=== PATIENT | female | born 1975 | race Caucasian/White ===

== ENCOUNTER 2017-07-13 15:36 | Outpatient (CLI) | payer OTHER | END 2017-07-13 15:37 | disposition home or self-care (01) | LOC: DI.N 15:36 | PROVIDERS: ATTEND Family Medicine | DX: Z53.9 Procedure and treatment not carried out, unspecified reason (principal) ==

== ENCOUNTER 2017-10-15 10:10 | Outpatient (CLI) | payer OTHER ==
--- NOTE | 2017-10-30 17:26 | Mammography Report ---
Reason: SCREEN Procedure Date: 10/15/2017 Accession Number: [id number] / [id number] Procedure: FABIO - Screening 3D [place] CPT Code: 01247 FULL RESULT: EXAM: Screening 3D [place] DATE: 10/15/2017 3:04 PM CLINICAL HISTORY: 42-year-old female with history of late childbearing presents for baseline screening mammography. TECHNIQUE: Bilateral CC and MLO views were obtained in 2-D and 3-D technique. COMPARISON: None FINDINGS: The breasts demonstrate heterogeneously dense fibroglandular parenchyma bilaterally. Typically benign coarse calcifications are identified in the right breast. No suspicious masses, clustered microcalcifications, or regions of architectural distortion are identified. IMPRESSION: Benign findings RECOMMENDATION: Routine annual screening unless otherwise clinically indicated. BIRADS CATEGORY 2: Benign findings STANDARD QUALIFYING STATEMENTS: 1. This examination was not reviewed with the aid of Computer-Aided Detection (CAD). 2. A negative or benign imaging report should not delay biopsy if clinically suspicious findings are present. Consider surgical consultation if warrented. More than 5% of cancers are not identified by imaging. 3. Dense breasts may obscure an underlying neoplasm. 4. This examination was reviewed with the aid of 3D imaging (tomography).
== END 2017-10-15 10:11 | disposition home or self-care (01) ==
LOC: DI 10:10
PROVIDERS: ATTEND Nurse Practitioner Adult Health
DX: Z12.31 Encounter for screening mammogram for malignant neoplasm of breast (principal)
CPT/HCPCS: 77063; 77067

== ENCOUNTER 2017-12-07 09:36 | Outpatient (CLI) | payer OTHER | END 2017-12-07 09:37 | disposition home or self-care (01) | LOC: SC 09:36 | PROVIDERS: ATTEND Internal Medicine Pulmonary Disease | DX: G47.10 Hypersomnia, unspecified (principal); R41.89 Other symptoms and signs involving cognitive functions and awareness; R06.83 Snoring; G47.8 Other sleep disorders | CPT/HCPCS: 99203; 99212 ==

== ENCOUNTER 2018-01-21 06:57 | Outpatient (CLI) | payer OTHER | END 2018-01-21 06:58 | disposition home or self-care (01) | LOC: SC 06:57 | PROVIDERS: ATTEND Internal Medicine Pulmonary Disease | DX: R06.83 Snoring (principal); G47.10 Hypersomnia, unspecified | CPT/HCPCS: 95810 ==

== ENCOUNTER 2018-01-21 11:40 | Outpatient (CLI) | payer OTHER | END 2018-01-21 11:41 | disposition EMS.NT | LOC: EMS 11:40 | PROVIDERS: ATTEND Surgery | DX: R51 Headache (principal); R11.10 Vomiting, unspecified ==

== ENCOUNTER 2018-03-02 09:18 | Outpatient (CLI) | payer OTHER | END 2018-03-02 09:19 | disposition home or self-care (01) | LOC: SC 09:18 | PROVIDERS: ATTEND Nurse Practitioner Family | DX: R06.83 Snoring (principal); G47.10 Hypersomnia, unspecified | CPT/HCPCS: 99212; 99214 ==

== ENCOUNTER 2018-05-07 11:06 | Outpatient (CLI) | payer OTHER ==
--- NOTE | 2018-05-13 17:03 | Ultrasound Report ---
Reason: AMENORRHEA,SECONDARY Procedure Date: 05/07/2018 Accession Number: [id number] / [id number] Procedure: US - Pelvic w/Transvaginal CPT Code: FULL RESULT: EXAM: PELVIC ULTRASOUND EXAM DATE: 05/07/2018 12:15 PM. CLINICAL HISTORY: Amenorrhea, secondary. COMPARISON: None. TECHNIQUE: Realtime transabdominal pelvic scan performed to identify the uterus and adnexa and as an overview of other pelvic structures, followed by transvaginal scan to provide greater detail of the uterus and adnexa, with static image documentation. FINDINGS: Uterus: 9 x 4.5 x 5.4 cm, volume 113 cc. Anteverted position. Normal overall size and echotexture. Masses: None. Endometrium: 6 mm. Normal. Cervix: Unremarkable. Right Ovary: 2.3 x 1.4 x 1.2 cm, volume 2 cc. Normal echotexture and blood flow. Left Ovary: 2.2 x 1.5 x 1.4 cm, volume 2.5 cc. Normal echotexture and blood flow. Free Fluid: None. Other: None. IMPRESSION: Normal pelvic ultrasound. RADIA
== END 2018-05-07 11:07 | disposition home or self-care (01) ==
LOC: DI 11:06
PROVIDERS: ATTEND Nurse Practitioner Adult Health
DX: N95.0 Postmenopausal bleeding (principal)
CPT/HCPCS: 76830; 76856

== ENCOUNTER 2018-05-07 11:10 | Outpatient (CLI) | payer OTHER ==
--- NOTE | 2018-05-07 14:45 | Mammography Report ---
Reason: MASTODYNIA,BILATERAL,GALACTORRHEA Procedure Date: 05/07/2018 Accession Number: [id number] / [id number] Procedure: FABIO - Diagnostic Dig Bilat CPT Code: FULL RESULT: EXAM: Diagnostic Dig Bilat DATE: 05/07/2018 12:45 PM CLINICAL HISTORY: Diagnostic exam. Bilateral Mastodynia and galactorrhea. History of late childbearing. TECHNIQUE: Bilateral CC and MLO images as well as bilateral ML images obtained COMPARISON: 10/15/2017. FINDINGS: The breasts demonstrate heterogeneously dense fibroglandular parenchyma bilaterally. There are coarse typically benign calcifications. No suspicious calcifications, mass or architectural distortion is identified. IMPRESSION: Benign findings RECOMMENDATION: Recommend routine annual Screening mammography unless otherwise clinically indicated. BIRADS CATEGORY 2: Benign findings STANDARD QUALIFYING STATEMENTS: 1. This examination was not reviewed with the aid of Computer-Aided Detection (CAD). 2. A negative or benign imaging report should not delay biopsy if clinically suspicious findings are present. Consider surgical consultation if warrented. More than 5% of cancers are not identified by imaging. 3. Dense breasts may obscure an underlying neoplasm. 4. This examination was reviewed with the aid of 3D imaging (tomography).
== END 2018-05-07 11:11 | disposition home or self-care (01) ==
LOC: DI 11:10
PROVIDERS: ATTEND Nurse Practitioner Adult Health
DX: N64.4 Mastodynia (principal); N64.52 Nipple discharge
CPT/HCPCS: 77066

== ENCOUNTER 2018-05-28 08:54 | Outpatient (CLI) | payer OTHER | END 2018-05-28 08:55 | disposition home or self-care (01) | LOC: LAB 08:54 | PROVIDERS: ATTEND Registered Nurse | DX: R63.5 Abnormal weight gain (principal) | CPT/HCPCS: 36415; 82951 ==

== ENCOUNTER 2018-06-21 19:30 | Outpatient (CLI) | payer OTHER | END 2018-06-21 23:59 | disposition home or self-care (01) | LOC: SC 19:30 | PROVIDERS: ATTEND Internal Medicine Pulmonary Disease | DX: G47.10 Hypersomnia, unspecified (principal) | CPT/HCPCS: 95806 ==

== ENCOUNTER 2018-08-31 12:53 | Outpatient (CLI) | payer OTHER | END 2018-08-31 12:54 | disposition home or self-care (01) | LOC: SC 12:53 | PROVIDERS: ATTEND Nurse Practitioner Family | DX: G47.10 Hypersomnia, unspecified (principal); R06.83 Snoring; R03.0 Elevated blood-pressure reading, without diagnosis of hypertension | CPT/HCPCS: 99212; 99214 ==

== ENCOUNTER 2018-11-09 18:19 | Emergency (ER) | payer OTHER ==
--- NOTE | 2018-11-09 19:35 | ED Physician Documentation ---
PD HPI BACK INJURY - Stated complaint Stated Complaint: BACK PX - History obtained from History obtained from: Patient - History of Present Illness Location: Right, Lower Type of injury: Twist (lifting bag heavier than expected - was picking it up to move it to the left. [place] onset of pain in right lower lumbar area. No weakness of legs, no numbness.). No: Fall Where injury occurred: Work Timing - onset: Today Timing - duration: Hours Timing - details: Abrupt onset, Still present Quality: Pain, Spasm Worsened by: Moving, Other (bending and twisting) Associated symptoms: No: Fever, Weakness, Numbness, Incontinent of urine Contributing factors: Work related. 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 - Present Medications Home Medications: Ambulatory Orders Medication Instructions Recorded Confirmed Hydrocodone/Acetaminophen [[place] 1 each PO Q6H PRN #15 tablet 11/09/18 5-325 Tablet] Naproxen 500 mg PO BID #20 tablet 11/09/18 Tizanidine HCl 4 mg PO TID PRN #25 capsule 11/09/18 dexAMETHasone [Decadron] 4 mg PO DAILY #5 tablet 11/09/18 - Allergies Allergies/Adverse Reactions: Allergies Allergy/AdvReac Type Severity Reaction Status Date / Time No Known Drug Allergies Allergy Verified 11/09/18 18:26 - Social History Does the pt smoke?: Yes Smoking Status: Current every day smoker Does the pt drink ETOH?: No Does the pt have substance abuse?: No - Immunizations Immunizations are current?: Yes - POLST Patient has POLST: No PD ED PE NORMAL - Vitals Vital signs reviewed: Yes - General General: Alert and oriented X 3, Well developed/nourished - Abdomen Abdomen: Soft, Non tender - Female Female : Deferred - Rectal Rectal: Deferred - Derm Derm: Normal color, Warm and dry - Extremities Extremities: Normal ROM s pain, No edema, No calf tenderness / cord - Neuro Neuro: No motor deficit, No sensory deficit Results - Vitals Vitals: Vital Signs - 24 hr 11/09/18 11/09/18 18:26 20:45 Temperature 36.5 C Heart Rate 111 H 107 H Respiratory 16 18 Rate Blood Pressure 162/97 H 135/110 H O2 Saturation 98 97 Oxygen O2 Source Room air PD MEDICAL DECISION MAKING - ED course Complexity details: considered differential (There are no red flags to suggest need for urgent imaging or blood tests. This sounds like acute myofascial strain without any sciatic type symptoms. We will treated with anti- inflammatories and muscle relaxants and pain medicine. Off work for 2 days and limited to the for another 5 days.), d/w patient Departure - Departure Disposition: Home, Self Care Clinical Impression: Acute lumbar myofascial strain Qualifiers: Encounter type: initial encounter Qualified Code(s): S39.012A - Strain of muscle, fascia and tendon of lower back, initial encounter Condition: Stable Record reviewed to determine appropriate education?: Yes Instructions: ED Sprain Strain Lumbar Follow-Up: Diane Akbar MD [Primary Care Provider] - Prescriptions: dexAMETHasone [Decadron] 4 mg PO DAILY #5 tablet Hydrocodone/Acetaminophen [[place]el[place] 5-325 Tablet] 1 each PO Q6H PRN #15 tablet PRN Reason: Pain Naproxen 500 mg PO BID #20 tablet Tizanidine HCl 4 mg PO TID PRN #25 capsule PRN Reason: Spasms Comments: Heat and gentle stretching for the low back to reduce stiffness and spasms. Anti-inflammatories naproxen twice daily for 7 to 10 days. Tizanidine muscle relaxant if needed for stiffness and spasm. Add Tylenol 4 times a day for pain as needed. Use hydrocodone if needed for worse pain. Off work for 2 days and then another 5 days a limited lifting to allow better healing. Follow-up with your primary care in about a week, call for an appointment for follow-up to ensure you are well enough to resume full activity. Forms: Activity restrictions Discharge Date/Time: 11/09/18 21:06
[2018-11-09] MEDS ORDERED: CHERRY SYRUP 10 ML UDC PO ONE (20:07)
[2018-11-09] MEDS ORDERED: HYDROcod/ACET 5/325 Prepack 4 PO STA (20:07)
[2018-11-09] MEDS ORDERED: METHOCARBAMOL 500 MG TABLET PO STA (20:07)
[2018-11-09] MEDS ORDERED: KETOROLAC 30 MG/ML VIAL IM STA (20:07)
[2018-11-09] MEDS ORDERED: DEXAMETHASONE 10 MG/ML VIAL PO STA (20:07)
[2018-11-09] MEDS ORDERED: ACETAMINOPHEN 325 MG TABLET PO STA (20:07)
[2018-11-09 20:45] VITALS: BP 135/110
== END 2018-11-09 21:06 | disposition home or self-care (01) ==
LOC: ED 18:19
DX: S39.012A Strain of muscle, fascia and tendon of lower back, initial encounter (principal); X50.0XXA Overexertion from strenuous movement or load, initial encounter; Y93.89 Activity, other specified; Y99.0 Civilian activity done for income or pay; I10 Essential (primary) hypertension; F17.200 Nicotine dependence, unspecified, uncomplicated
CPT/HCPCS: 1040M; 96372; 99283; 99284; A9270

== ENCOUNTER 2019-06-20 16:52 | Outpatient (CLI) | payer OTHER ==
--- NOTE | 2019-06-20 16:42 | SLEEP CARE CONSULTATION ---
Information from patient questionnaire entered by Heena Han. I have reviewed and concur with the information entered by Heena Han. This document represents the service I personally performed and the decisions made by me, Kaycee Kevin, RN, MSN, RACING DRIVER. History of Present Illness Service Date and Time: 06/20/2019 1600 Reason for follow up: other (10 MONTH WITH POSITIONAL THERAPY AND JOURNAL) HPI additional information: I called patient for her televisit to address her sleep concerns. I review my past visit note prior to the call. She had a HST which showed no significant sleep disordered breathing with an AHI of 2.9. However, due to her nasal congestion and coughing at night fragmenting sleep, an ENT consult was recommended. A sleep diary was advised. She was also advised to lose weight to reduce health and apnea risk. Follow up was recommended in 2 months. She reports that she continues to have difficulty sleeping through the night. She was able to go to ENT and tubes placed in ears but out now and was offered to have replaced. She recently had an ear infection and took an antibiotic with resolution. She was offered to get allergy shots but unable to complete due to difficulty completing weekly treament due to work schedule. She currently is taking Allergra for allergy symptoms and alternates with Claritin with benefit noted. She does not think the symptoms are interfering with sleep. Review of current sleep history bedtime 10-11pm It takes about an hour to fall asleep. an hour before sleep her bedtime ritual is a shower and resting in bed. If she is unable to sleep right away she will read relaxing material. She wakes about 2-3 am and sometimes can fall asleep right away and other times it takes an hour. She looks at clock every time she awakens. Wake up time is 5am - 5:15am. She uses an alarm and will use snooze button only a couple times. She is not napping. Subjective Initial [place] Sleepiness Scale score: 7 Physical Exam Height: 5 ft 6 in Weight: 197 lb Body Mass Index: 31.8 BMI Classification: Obese Impression and Plan Insomnia, with difficulty going to sleep and maintaining sleep. It seems that patient is going to bed too early as it takes 1 hour generally to fall asleep. Thus she is advised to read prior to going to bed instead of in bed to associate the bed with sleep not trying to go to sleep. In addition, she is advised to cover clock so that she does not look at it in the middle of night as it can be alerting with rationale explained. Instead when she awakens she is to address needs such as use bathroom or position for comfort and try to go back to sleep. If she is unable within a short while then she is to leave bedroom and engage in quiet activity such as reading with light behind her so not to affect her melatonin level. Staying in bed tossing and turning will only heighten frustration and alertness. This is to be repeated as often as necessary to associate the bed with sleep and not frustration to get to sleep. A sleep diary will be completed for the next 2 weeks to assist implementation of recommendations and for further evaluation of sleep concerns. 1. Implement methods to reduce insomnia 2. complete 2 weeks of sleep diaries 3. Follow up in 1-2 months. Visit Type: Telehealth Phone (to reduce risk of Covid 19 risk.) Patient Location: Home Location of Provider: Home Patient agrees and consents to this telehealth visit type: Yes Patient agrees to have their insurance billed: Yes Time Spent with Patient (minutes): 10 Provider Statement: I spent 100% of the Telehealth Phone Call with the patient with greater than 50% spent counseling the patient and coordination of care.
== END 2019-06-20 16:53 | disposition home or self-care (01) ==
LOC: SC 16:52
PROVIDERS: ATTEND Nurse Practitioner Family
DX: G47.00 Insomnia, unspecified (principal); E66.9 Obesity, unspecified; Z68.31 Body mass index [BMI] 31.0-31.9, adult

== ENCOUNTER 2020-08-12 13:14 | Outpatient (CLI) | payer OTHER ==
--- NOTE | 2020-08-12 14:18 | XRAY Report ---
PROCEDURE: Chest 2 View X-Ray INDICATIONS: CONGESTION TECHNIQUE: 2 view(s) of the chest. COMPARISON: None. FINDINGS: Surgical changes and devices: None. Lungs and pleura: No pleural effusions or pneumothorax. Lungs are clear. Mediastinum: Mediastinal contours are normal. Heart size is normal. Bones and chest wall: No suspicious bony abnormalities. Soft tissues appear unremarkable. IMPRESSION: Normal. No infiltrates. If there is strong clinical concern for a developing or new pulmonary process, please consider a shor t-term follow-up 2 view chest series, performed in deep inspiration. Reviewed by: Mendel Schmidt MD on 08/12/2020 1:16 PM SUSAN Approved by: Mendel Schmidt MD on 08/12/2020 1:16 PM SUSAN Station ID: [id number]
== END 2020-08-12 23:59 | disposition home or self-care (01) ==
LOC: DI.N 13:14
PROVIDERS: ATTEND Nurse Practitioner
DX: R06.2 Wheezing (principal); Z20.822 Contact with and (suspected) exposure to COVID-19

== ENCOUNTER 2021-02-12 16:25 | Emergency (ER) | payer OTHER ==
[2021-02-12] MEDS ORDERED: KETOROLAC 60 MG/2 ML VIAL IM STA (17:28)
--- NOTE | 2021-02-12 17:32 | ED Physician Documentation ---
History of Present Illness - Stated complaint Stated Complaint: LT SHOULDER PX - Chief complaint Chief Complaint: Ext Problem - Additonal information Additional information: 46-year-old female presents emergency department for evaluation of 3 weeks left shoulder pain. 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 She often has pain when she rises from a sitting position. No falls or trauma. No fevers. She is right arm dominant. No history of previous injury to the shoulder or pain. 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 : None HEENT: None Psych: None Musculoskeletal: None Derm: None - Past Surgical History 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 - Present Medications Home Medications: Ambulatory Orders Medication Instructions Recorded Confirmed Amlodipine Besylate [Norvasc] 10 mg PO DAILY 02/12/21 02/12/21 Atorvastatin Calcium 40 mg PO DAILY PM 02/12/21 02/12/21 - Allergies Allergies/Adverse Reactions: Allergies Allergy/AdvReac Type Severity Reaction Status Date / Time No Known Drug Allergies Allergy Verified 02/12/21 16:49 - Social History Does the pt smoke?: Yes Smoking Status: Current every day smoker Does the pt drink ETOH?: No Does the pt have substance abuse?: No - Immunizations Immunizations are current?: Yes - POLST Patient has POLST: No PD ED PE EXPANDED - General General: Alert, No acute distress - Cardiac Cardiac: Regular Rate, Radial strong equal, Pedal strong equal. No: Murmur Present - Respiratory Respiratory: Clear to ausultation nicole. No: Distress, Labored - Extremities Extremities: Left shoulder (no swelling, erythema. no tenderness tricepts tendon. Full active ROM. Negative impingment tesing. 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 water resources engineer strength) Results - Vitals Vitals: Vital Signs - 24 hr 02/12/21 02/12/21 16:44 17:19 Temperature 36.2 C L 36.4 C L Heart Rate 99 99 Respiratory 18 16 Rate Blood Pressure 174/114 H O2 Saturation 98 96 Oxygen O2 Source Room air - Rads (name of study) left shoulder Radiology: Final report received (No acute osseous process) PD MEDICAL DECISION MAKING - ED course Complexity details: reviewed old records, reviewed results, re-evaluated patient, d/w patient ED course: Well-appearing 46-year-old female presents emergency department for evaluation of 3 weeks left shoulder pain. 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 No falls or trauma. Shoulder is relatively brief during with nearly full range of motion in all planes. No swelling or erythema. Low suspicion for for septic infection. pt is advised to f/u with pcp, may benefit from referral to PT. cnsider MRI if not improved with conservative therapy Departure - Departure Disposition: 01 Home, Self Care Clinical Impression: Left anterior shoulder pain Condition: Stable Record reviewed to determine appropriate education?: Yes Instructions: ED Strain Muscle Ext Comments: Zoila you are seen in the emergency department today for about 3 weeks of pain in your left shoulder. 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 I suspect that he may have an overuse injury. I do recommend that you take Tylenol or ibuprofen 2-3 times a day for discomfort. You will benefit from reducing the repetitive movements but you can otherwise use your arm normally. I do recommend close follow-up with your primary care doctor. You might benefit from referral to a physical therapist. If conservative treatment or physical therapy does not improve your symptoms further evaluation of the shoulder can be completed with an MRI. If any point you develop shoulder swelling, redness, have fevers sudden severe or different pain then please return immediately to the ER for second jessica luation.
--- NOTE | 2021-02-12 17:43 | XRAY Report ---
PROCEDURE: Shoulder 3 View LT INDICATIONS: 3 weeks left shoulder pain TECHNIQUE: 3 views of the shoulder were acquired. COMPARISON: None. FINDINGS: Bones: No fractures or dislocations. No suspicious bony lesions. Visualized ribs appear intact. Soft tissues: No suspicious soft tissue calcifications. IMPRESSION: No acute fracture. No osseous lesion. If symptoms and/or clinical suspicion for patholog y continue, further assessment with repeat plain films, or advanced imaging (e.g., CT, MRI, or bone s can) is recommended for further assessment. Reviewed by: Gloria Morgan MD on 02/12/2021 5:42 PM PST Approved by: Gloria Morgan MD on 02/12/2021 5:42 PM PST Station ID: [id number]
[2021-02-12 18:34] VITALS: BP 178/102
== END 2021-02-12 18:33 | disposition home or self-care (01) ==
LOC: ED 16:25
DX: M25.512 Pain in left shoulder (principal); F17.200 Nicotine dependence, unspecified, uncomplicated
CPT/HCPCS: 96372; 99283

== ENCOUNTER 2021-06-17 10:40 | Emergency (ER) | payer OTHER ==
[2021-06-17 10:47] VITALS: BP 193/112
--- NOTE | 2021-06-17 11:17 | XRAY Report ---
PROCEDURE: Knee 4 View LT INDICATIONS: Trauma TECHNIQUE: 4 views of the left knee(s) were acquired. COMPARISON: None. FINDINGS: Bones: No fractures or dislocations. Moderate tricompartmental osteoarthritis is seen more prominent in medial femoral tibial compartment. No suspicious bony lesions. Soft tissues: Small suprapatellar joint effusion is noted. Well-corticated calcification is seen proj ecting over medial aspect of suprapatellar joint space, a small loose body cannot be excluded. IMPRESSION: No left knee fracture or dislocation. Moderate joint effusion. Moderate tricompartmental osteoarthritis. Possible loose body versus soft tissue calcification from remote injury as above. Reviewed by: Miguelito Johnson MD on 06/17/2021 11:16 AM PDT Approved by: Miguelito Johnson MD on 06/17/2021 11:16 AM PDT Station ID: [id number]
--- NOTE | 2021-06-17 11:18 | ED Physician Documentation ---
PD HPI LOWER EXT INJURY - Stated complaint Stated Complaint: LT KNEE INJ - Chief complaint Chief Complaint: Ext Problem - History obtained from History obtained from: Patient - History of Present Illness PD HPI LOW EXT INJURY LOCATION: Left, Knee Where injury occurred: Home Timing - details: Gradual onset Pain level max: 7 Pain level now: 5 Improved by: Rest Worsened by: Moving, Palpating Associated symptoms: Swelling. No: Weakness, Numbness, Tingling Recently seen: Not recently seen - Additional information Additional information: Patient is a 46-year-old female who presents to the emergency department stating that she injured her left knee about 4 days ago playing basketball with her son. She does not recall any specific injury, but states it has been hurting since that time. Worse with walking, better with rest. Has not had any prior knee surgeries. 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 - Present Medications Home Medications: Ambulatory Orders Medication Instructions Recorded Confirmed Amlodipine Besylate [Norvasc] 10 mg PO DAILY 02/12/21 02/12/21 Atorvastatin Calcium 40 mg PO DAILY PM 02/12/21 02/12/21 - Allergies Allergies/Adverse Reactions: Allergies Allergy/AdvReac Type Severity Reaction Status Date / Time No Known Drug Allergies Allergy Verified 06/17/21 10:47 - Social History Does the pt smoke?: Yes Smoking Status: Current every day smoker Does the pt drink ETOH?: No Does the pt have substance abuse?: No - Immunizations Immunizations are current?: Yes - POLST Patient has POLST: No PD ED PE NORMAL - Vitals Vital signs reviewed: Yes - General General: Alert and oriented X 3, No acute distress - HEENT HEENT: Moist mucous membranes - Cardiac Cardiac: RRR - Respiratory Respiratory: No respiratory distress, Clear bilaterally - Derm Derm: Warm and dry - Neuro Neuro: Alert and oriented X 3, Other (Tender to palpation across the joint line of the left knee. Mild swelling. Mild effusion. Neurovascularly intact. ACL, MCL, PCL, LCL are intact. Does have pain with meniscus testing.) Results - Vitals Vitals: Vital Signs - 24 hr 06/17/21 10:45 Temperature 36.4 C L Heart Rate 101 H Respiratory 16 Rate Blood Pressure 193/112 H O2 Saturation 96 Oxygen O2 Source Room air - Rads (name of study) Left knee x-ray Radiology: Final report received, EMP read contemporaneously, See rad report PD MEDICAL DECISION MAKING - ED course Complexity details: reviewed results, re-evaluated patient, considered differential, d/w patient ED course: Patient with a mild left knee effusion. Placed an articulating knee brace, 10 to 30 degrees. Given crutches as well. Patient declines any pain medication here or for home. After the swelling is decreased, recommend she follow-up with orthopedics to evaluate her meniscus. Patient counseled regarding signs and symptoms for which I believe and urgent re-evaluation would be necessary. Patient with good understanding of and agreement to plan and is comfortable going home at this time This document was made in part using voice recognition software. While efforts are made to proofread this document, sound alike and grammatical errors may occur. The possible loose foreign body on x-ray is likely calcification from remote injury given correlation with her physical exam. IMPRESSION: No left knee fracture or dislocation. Moderate joint effusion. Moderate tricompartmental osteoarthritis. Possible loose body versus soft tissue calcification from remote injury as above. Departure - Departure Disposition: 01 Home, Self Care Clinical Impression: Knee effusion Qualifiers: Laterality: left Qualified Code(s): M25.462 - Effusion, left knee Injury of meniscus of knee Qualifiers: Encounter type: initial encounter Laterality: left Qualified Code(s): S83.8X2A - Sprain of other specified parts of left knee, initial encounter Condition: Good Instructions: ED Effusion Knee Follow-Up: your,doctor in 1 week [Other] Orthopedic Care [Provider Group] - Within 1 week Comments: Please follow-up with your doctor for further care. Return if you worsen. You may bear weight as tolerated, but will likely need to stay off the leg as much as possible for the next week. The brace should help as well. Ice and elevation will help as well. IMPRESSION: No left knee fracture or dislocation. Moderate joint effusion. Moderate tricompartmental osteoarthritis. Possible loose body versus soft tissue calcification from remote injury as above. Discharge Date/Time: 06/17/21 11:55
== END 2021-06-17 11:55 | disposition home or self-care (01) ==
LOC: ED 10:40
DX: S83.8X2A Sprain of other specified parts of left knee, initial encounter (principal); X58.XXXA Exposure to other specified factors, initial encounter; Y93.67 Activity, basketball; F17.200 Nicotine dependence, unspecified, uncomplicated; M25.462 Effusion, left knee
CPT/HCPCS: 99283; 99284

== ENCOUNTER 2022-01-01 14:10 | Emergency (ER) | payer OTHER ==
[2022-01-01 14:42] LABS: BASOPHILS # (AUTO) 0.1 10^3/uL (0.0-0.1); BASOPHILS % (AUTO) 0.3 %; EOSINOPHILS # (AUTO) 0.2 10^3/uL (0.0-0.7); EOSINOPHILS % (AUTO) 1.1 %; HCT - HEMATOCRIT 43.6 % (37.0-47.0); HGB - HEMOGLOBIN 14.9 g/dL (12.0-16.0); LYMPHOCYTES # (AUTO) 3.2 10^3/uL (1.5-3.5); LYMPHOCYTES % (AUTO) 21.1 %; MEAN CORPUSCULAR HEMOGLOBIN 30.7 pg (27.0-31.0); MEAN CORPUSCULAR HGB CONC 34.2 g/dL (32.0-36.0); MEAN CORPUSCULAR VOLUME 89.7 fL (81.0-99.0); MEAN PLATELET VOLUME 9.4 fL (7.9-10.8); MONOCYTES % (AUTO) 6.3 %; NEUTROPHILS # (AUTO) 10.8 10^3/uL (1.5-6.6); NEUTROPHILS % (AUTO) 70.9 %; PLT - PLATELET COUNT 347 10^3/uL (130-450); RED BLOOD COUNT 4.86 10^6/uL (4.20-5.40); RED CELL DISTRIBUTION WIDTH 12.4 % (12.0-15.0); WHITE BLOOD COUNT 15.3 x10^3/uL (4.8-10.8)
[2022-01-01 14:57] LABS: ALBUMIN 4.4 g/dL (3.2-5.5); ALBUMIN/GLOBULIN RATIO 1.2 (1.0-2.2); BILIRUBIN,TOTAL 0.5 mg/dL (0.2-1.0); CALCIUM 9.4 mg/dL (8.5-10.3); CREATININE 0.7 mg/dL (0.4-1.0); POTASSIUM 3.5 mmol/L (3.5-5.0)
[2022-01-01] MEDS ORDERED: MAG HYDROX/AL HYDROX/SIMETH 30 ML UDC PO STA (17:03)
[2022-01-01] MEDS ORDERED: LIDOCAINE VISCOUS 2% 15 ML UDC MM STA (17:03)
--- NOTE | 2022-01-01 17:04 | ED Physician Documentation ---
PD HPI ABD PAIN - Stated complaint Stated Complaint: BACK PX,ABD PX,N/V - Chief complaint Chief Complaint: Abd Pain - History obtained from History obtained from: Patient - Additional information Additional information: 46-year-old woman has had right upper quadrant pain radiating to the mid back for almost 48 hours now. Its associate with nausea and poor appetite. She has been a bit constipated with it. No urinary complaints. She is never had this before. She is had a , no other abdominal surgeries. She notes that she was started on amoxicillin late last week for sinus infection and double ear infection. 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: section - Present Medications Home Medications: Ambulatory Orders Medication Instructions Recorded Confirmed Amlodipine Besylate [Norvasc] 10 mg PO DAILY 02/12/21 02/12/21 Atorvastatin Calcium 40 mg PO DAILY PM 02/12/21 02/12/21 - Allergies Allergies/Adverse Reactions: Allergies Allergy/AdvReac Type Severity Reaction Status Date / Time No Known Drug Allergies Allergy Verified 06/17/21 10:47 - Social History Does the pt smoke?: Yes Smoking Status: Current every day smoker Does the pt drink ETOH?: No Does the pt have substance abuse?: No - Immunizations Immunizations are current?: Yes - POLST Patient has POLST: No PD ED PE NORMAL - Vitals Vital signs reviewed: Yes - General General: Alert and oriented X 3, No acute distress - Neck Neck: Supple, no meningeal sign, No bony TTP - Cardiac Cardiac: RRR, No murmur - Respiratory Respiratory: No respiratory distress, Clear bilaterally - Abdomen Abdomen: Normal bowel sounds, Soft, Other (Mild tenderness in the right upper quadrant with negative Douglas sign, no other abdominal tenderness or surgical signs.) - Back Back: No CVA TTP, No spinal TTP - Derm Derm: Normal color, Warm and dry - Extremities Extremities: No edema, No calf tenderness / cord - Neuro Neuro: Alert and oriented X 3, Normal speech Results - Vitals Vitals: Vital Signs - 24 hr 01/01/22 01/01/22 01/01/22 14:21 14:24 16:24 Temperature 36.9 C 36.9 C Heart Rate 100 100 90 Respiratory 16 16 16 Rate Blood Pressure 177/90 H 177/90 H 179/95 H O2 Saturation 98 98 99 01/01/22 18:00 Temperature Heart Rate 90 Respiratory 16 Rate Blood Pressure 150/90 H O2 Saturation 99 Oxygen O2 Source Room air - Labs Labs: Laboratory Tests 01/01/22 01/01/22 01/01/22 14:36 14:36 18:38 WBC 15.3 H RBC 4.86 Hgb 14.9 Hct 43.6 MCV 89.7 MCH 30.7 MCHC 34.2 RDW 12.4 Plt Count 347 MPV 9.4 Neut # (Auto) 10.8 H Lymph # (Auto) 3.2 Tillman # (Auto) 1.0 Eos # (Auto) 0.2 Baso # (Auto) 0.1 Absolute Nucleated RBC 0.00 Nucleated RBC % 0.0 Sodium 138 Potassium 3.5 Chloride 98 L Carbon Dioxide 28 Anion Gap 12.0 BUN 14 Creatinine 0.7 Estimated GFR (MDRD) 90 Glucose 97 Calcium 9.4 Total Bilirubin 0.5 AST 26 ALT 34 Alkaline Phosphatase 68 Total Protein 8.0 Albumin 4.4 Globulin 3.6 Albumin/Globulin Ratio 1.2 Lipase 45 Urine Color YELLOW Urine Clarity CLEAR Urine pH 7.0 Ur Specific [place] 1.010 Urine Protein NEGATIVE Urine Glucose (UA) NEGATIVE Urine Ketones NEGATIVE Urine Occult Blood SMALL H Urine Nitrite NEGATIVE Urine Bilirubin NEGATIVE Urine Urobilinogen 0.2 (NORMAL) Ur Leukocyte Esterase NEGATIVE Urine RBC 0-5 Urine WBC 0-3 Ur Squamous Epith Cells MANY Squamous H Urine Bacteria Rare Ur Microscopic Review INDICATED Urine Culture Comments NOT INDICATED Urine HCG, Qual NEGATIVE PD MEDICAL DECISION MAKING - ED course ED course: 46-year-old woman with right upper quadrant and epigastric pain radiating to the back for the last couple of days, worse with eating and associated with nausea. She is not an extremis, and a relatively benign examination. She did get some relief with a GI cocktail. No leukocytosis of moderate extent but no other lab abnormalities. Ultrasound showing fatty liver per preliminary report but no evidence of gallbladder pathology or stones. She was recently started on amoxicillin and may have some gastritis related to same. She declined pain medication while here. She was given close return precautions but will trial a PPI. Departure - Departure Disposition: 01 Home, Self Care Clinical Impression: Abdominal pain Qualifiers: Abdominal location: right upper quadrant Qualified Code(s): R10.11 - Right upper quadrant pain Condition: Good Record reviewed to determine appropriate education?: Yes Instructions: ED Abdominal Pain Female Non-Specific Abdominal Pain Comments: Suspect you have gastritis from the antibiotics, I would like you to take a proton pump inhibitor such as omeprazole or lansoprazole per package instructions. These are available [id number]. Return for new or worsening symptoms or if not better in the next 48 hours or so. Follow-up with your doctor, next available appointment regardless, consideration for referral for upper endoscopy if symptoms are persistent. If pain moves into the lower abdomen or elsewhere please return immediately for reevaluation. Discharge Date/Time: 01/01/22 18:57
[2022-01-01 18:03] VITALS: BP 150/90
[2022-01-01 18:46] LABS: BILIRUBIN,URINE NEGATIVE (NEGATIVE); GLUCOSE, URINE (UA) NEGATIVE (NEGATIVE); KETONES,URINE (UA) NEGATIVE (NEGATIVE); LEUKOCYTE ESTERASE, URINE NEGATIVE (NEGATIVE); NITRITE,URINE NEGATIVE (NEGATIVE); OCCULT BLOOD,URINE SMALL (NEGATIVE); PROTEIN,URINE NEGATIVE (NEGATIVE); UROBILINOGEN,URINE 0.2 (NORMAL) E.U./dL (NORMAL)
[2022-01-01] MEDS ORDERED: PANTOPRAZOLE 40 MG TABLET PO STA (18:46)
[2022-01-01] MEDS ORDERED: HYDROcod/ACET 5/325 Prepack 4 PO STA (18:46)
[2022-01-01 18:49] LABS: CLARITY,URINE CLEAR (CLEAR); HCG UR QUAL NEGATIVE
[2022-01-01 18:56] LABS: BACTERIA,URINE Rare /HPF (None Seen); RBC,URINE 0-5 /HPF (0-5); SQUAMOUS EPITHELIAL CELL,UR MANY Squamous (<= Few); WBC,URINE 0-3 /HPF (0-5)
--- NOTE | 2022-01-01 19:22 | Ultrasound Report ---
PROCEDURE: Abdomen Limited INDICATIONS: RUQ pain TECHNIQUE: Real-time focused scanning was performed of the abdomen, with image documentation. COMPARISON: None FINDINGS: The liver is normal size with a smooth contour or the parenchyma is diffusely hyperechoic. There is relative hypoechogenicity in the gallbladder fossa. The gallbladder is normal without stones or sludge. Normal wall thickness at 2 mm. No pericholecystic fluid or sonographic Douglas sign. The common duct measures 4.5 mm where it is seen. The visible portions of the pancreas are slightly hypoechoic and heterogeneous. No ductal dilatation. The visible portions of the right kidney are normal without hydronephrosis. Kidney illustrates normal length at 11.5 cm and normal cortical echogenicity. IMPRESSION: 1. Normal gallbladder. 2. Mild hepatic steatosis or other intrinsic liver disease. 3. Heterogeneous pancreas raises possibility of chronic pancreatitis. No acute peripancreatic fluid c ollections or ductal dilatation. Reviewed by: Laila Scott MD on 01/01/2022 7:21 PM PST Approved by: Laila Scott MD on 01/01/2022 7:21 PM PST Station ID: [id number]
== END 2022-01-01 18:57 | disposition home or self-care (01) ==
LOC: ED 14:10
DX: R10.11 Right upper quadrant pain (principal); F17.200 Nicotine dependence, unspecified, uncomplicated
CPT/HCPCS: 36415; 76705; 80053; 81001; 81025; 83690; 85025; 99282; 99284; A9270; 81003; 87086

== ENCOUNTER 2022-05-16 13:17 | Emergency (ER) | payer OTHER ==
[2022-05-16 13:22] VITALS: BP 136/96
--- NOTE | 2022-05-16 13:49 | ED Physician Documentation ---
History of Present Illness - Stated complaint Stated Complaint: R KNEE INJ - Chief complaint Chief Complaint: Trauma Ext - Additonal information Additional information: 47-year-old female presents emergency department for evaluation of acute right knee pain. Reports she was walking in a parking lot yesterday when she felt a pop in the anterior knee. She is had some mild swelling and pain bearing weight since. She reports that last year she had meniscal injuries in both knees that was improved with physical therapy. She denies falls or trauma. No fevers. Patient took Motrin and Aleve without relief of pain. 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 - Present Medications Home Medications: Ambulatory Orders Medication Instructions Recorded Confirmed Amlodipine Besylate [Norvasc] 10 mg PO DAILY 02/12/21 02/12/21 Atorvastatin Calcium 40 mg PO DAILY PM 02/12/21 02/12/21 - Allergies Allergies/Adverse Reactions: Allergies Allergy/AdvReac Type Severity Reaction Status Date / Time No Known Drug Allergies Allergy Verified 05/16/22 13:22 - Social History Does the pt smoke?: Yes Smoking Status: Current every day smoker Does the pt drink ETOH?: No Does the pt have substance abuse?: No - Immunizations Immunizations are current?: Yes - POLST Patient has POLST: No PD ED PE EXPANDED - Extremities Extremities: Right knee (Mild swelling without ecchymosis. Laxity noted medially. Most of tenderness elicited with palpation of the medial joint line. Normal flexion and extension. Neurovascular intact distally) Results - Vitals Vitals: Vital Signs - 24 hr 05/16/22 13:20 Temperature 36.6 C Heart Rate 107 H Respiratory 18 Rate Blood Pressure 136/96 H O2 Saturation 100 Oxygen O2 Source Room air - Rads (name of study) right knee Relevant Findings:: Final report received (Mild effusion. No visualized acute fracture or dislocation.) PD Medical Decision Making - ED course Complexity details: reviewed results, re-evaluated patient, considered differential, d/w patient ED course: 47-year-old Female presents emergency department for evaluation of acute right knee pain sustained when walking yesterday and feeling a pop in the anterior knee. She does have a history of meniscal injuries to both the knees about a year ago that was improved with physical therapy. She denies any falls or trauma. On exam there is some moderate swelling of the knee and mild laxity medially. Otherwise neurovascularly intact. An x-ray shows a moderate joint ef fusion but no obvious fracture or dislocation. I discussed with the patient that the constellation of symptoms likely indicates a new meniscal or ligamentous injury. Patient is placed in a knee immobilizer and given crutches. She is advised to follow closely with her [place] medical provider. May benefit from referral to orthopedics for repeat evaluation given that this seems to be a recurrent injury. Recommended low-dose NSAID as well as Tylenol at home for discomfort. The usual emergent return precautions were discussed for concerns of infection Departure - Departure Disposition: Home, Self Care Clinical Impression: Right medial knee pain Knee effusion Qualifiers: Laterality: right Qualified Code(s): M25.461 - Effusion, right knee MCL sprain of right knee Qualifiers: Encounter type: initial encounter Qualified Code(s): S83.411A - Sprain of medial collateral ligament of right knee, initial encounter Condition: Stable Record reviewed to determine appropriate education?: Yes Instructions: ED Meniscal Injury Knee Poss, ED Sprain Knee Comments: Zoila you came to the emergency department because you developed some pain in the right knee yesterday when you are walking. You felt a pop in the knee. You did have meniscal injuries last year that improved with physical therapy. The x-ray of your knee today does not show any broken bones though you do have an effusion which is fluid overlying the joints of the knee. This is often seen in meniscal and ligamentous injuries. I would like you to discuss this ED visit with [facility] Given that this seems to be a recurrent injury you may benefit from referral to orthopedics for longer-term evaluation of your knee injuries. In the short-term we have placed you in a knee immobilizer and giving you some crutches. I would like you to use ibuprofen 6 or milligrams with food 2-3 times a day or alternate with 500 mg of Tylenol for knee pain and discomfort. With mild sprain injuries I would expect pain and swelling to be getting markedly better over the next 7 to 10 days. If not improving your primary provider may elect to make the referral to orthopedics or physical therapy again.
--- NOTE | 2022-05-16 13:54 | XRAY Report ---
PROCEDURE: Knee 3 View RT INDICATIONS: knee pain with pop TECHNIQUE: 3 views of the right knee(s) were acquired. COMPARISON: None. FINDINGS: Bones: No fractures or dislocations. No suspicious bony lesions. Soft tissues: Mild effusion. No suspicious soft tissue calcifications or masses. IMPRESSION: Mild effusion. No visualized acute fracture or dislocation. However, occult injury cannot be excluded . Recommend short interval imaging follow-up in 7-10 days as clinically indicated for additional eval uation. Reviewed by: Dina Hagen MD on 05/16/2022 1:52 PM PDT Approved by: Dina Hagen MD on 05/16/2022 1:52 PM PDT Station ID: [id number]
== END 2022-05-16 14:27 | disposition home or self-care (01) ==
LOC: ED 13:17
DX: M25.461 Effusion, right knee (principal); S83.411A Sprain of medial collateral ligament of right knee, initial encounter; X58.XXXA Exposure to other specified factors, initial encounter; Y93.01 Activity, walking, marching and hiking
CPT/HCPCS: 99283

== ENCOUNTER 2022-11-05 08:29 | Outpatient (CLI) | payer OTHER | END 2022-11-05 08:30 | disposition home or self-care (01) | LOC: DI.N 08:29 | PROVIDERS: ATTEND Family Medicine | DX: Z53.9 Procedure and treatment not carried out, unspecified reason (principal) ==

== ENCOUNTER 2022-11-17 10:47 | Outpatient (CLI) | payer OTHER ==
--- NOTE | 2022-11-18 16:22 | Ultrasound Report ---
LIMITED ULTRASOUND OF RIGHT BREAST: 11/17/2022 CLINICAL: Nipple discharge, both breasts, not bloody. Comparison is made to exams dated: 11/17/2022 mammogram, 05/07/2018 mammogram, and 10/15/2017 mammogram - [facility]. Color flow and real-time ultrasound of the right breast 3 o'clock, 9 o'clock, and retroareolar region s were performed. Iniguez scale images of the real-time examination were reviewed. There is a possible 0.5 cm x 0.4 cm x 0.3 cm complicated cyst in the right breast at 3 o'clock in the retroareolar region. There also is a possible 0.7 cm x 0.7 cm x 0.3 cm complicated cyst in the right breast at 9 o'clock a nterior depth 4 cm from the nipple. This correlates with mammography findings. Smaller, similar pos sible complicated cysts are seen adjacent to this finding. IMPRESSION: PROBABLY BENIGN The possible 0.5 cm x 0.4 cm x 0.3 cm complicated cyst in the right breast at 3 o'clock in the retroa reolar region is probably benign, incidental. The possible 0.7 cm x 0.7 cm x 0.3 cm complicated cyst in the right breast at 9 o'clock anterior dept h is probably benign. This correlates with mammography findings. Smaller, similar possible complica alec cysts are seen adjacent to this finding. No definitely sonographic correlate to non-bloody discharge. Clinical followup recommended. A follow-up mammogram and an ultrasound in 6 months is recommended to demonstrate stability. This exam was interpreted at Station ID: [id number]. Electronically Signed By: Richie Gomez M.D. lc/:11/17/2022 13:05:07 Ultrasound BI-RADS: 3 Probably benign BI-RADS CATEGORY: (3) - 3 Mammo and [place] [id number] 6 month follow-up LATERALITY: (B)
--- NOTE | 2022-11-18 16:22 | Ultrasound Report ---
LIMITED ULTRASOUND OF LEFT BREAST AND AXILLA: 11/17/2022 CLINICAL: Nipple discharge, both breasts, not bloody. Comparison is made to exams dated: 11/17/2022 ultrasound, 11/17/2022 mammogram, 05/07/2018 mammogram, a nd 10/15/2017 mammogram - [facility]. Color flow and real-time ultrasound of the left breast 9 o'clock, retroareolar, and axilla regions w ere performed. Iniguez scale images of the real-time examination were reviewed. There is a 0.5 cm x 0.6 cm x 0.3 cm oval mass with a circumscribed margin in the left breast at 9 o'c lock anterior depth 1 cm from the nipple. This oval mass is hypoechoic with posterior acoustic shado wing. This correlates with mammography findings. There also is a possible 0.6 cm x 0.6 cm x 0.3 cm complicated cyst in the left breast at 9 o'clock in the retroareolar region 2 cm from the nipple. No significant abnormalities were seen sonographically in the left axilla. IMPRESSION: SUSPICIOUS OF MALIGNANCY The 0.5 cm x 0.6 cm x 0.3 cm oval mass in the left breast at 9 o'clock anterior depth is suspicious o f malignancy. An ultrasound guided biopsy is recommended. This correlates with mammogram. No significant abnormalities were seen sonographically in the left axilla. The possible 0.6 cm x 0.6 cm x 0.3 cm complicated cyst in the left breast at 9 o'clock in the retroar eolar region is probably benign, incidental. No definitely ductal abnormality to correspond to non-bloody nipple discharge. Clinical followup stephanie mmended. This exam was interpreted at Station ID: [id number]. Electronically Signed By: Richie Gomez M.D. lc/:11/17/2022 13:08:02 Ultrasound BI-RADS: 4 Suspicious for malignancy BI-RADS CATEGORY: (4) - 4 Biopsy follow-up [id number] Immediate follow-up LATERALITY: (B)
--- NOTE | 2022-11-18 16:22 | Mammography Report ---
BILATERAL DIGITAL DIAGNOSTIC MAMMOGRAM 3D/2D: 11/17/2022 CLINICAL: Bilateral nipple discharge. Comparison is made to exams dated: 05/07/2018 mammogram and 10/15/2017 mammogram - [facility]. Both breasts are heterogeneously dense, which may obscure small masses (category c / 51-75% glandular tissue). There is an oval asymmetry with a circumscribed margin in the right breast anterior depth lateral reg ion seen on the craniocaudal view only. There is an oval focal asymmetry in the left breast at 8 o'clock in the retroareolar region. No other significant masses or calcifications are seen in either breast. IMPRESSION: INCOMPLETE: NEEDS ADDITIONAL IMAGING EVALUATION The oval asymmetry in the right breast anterior depth lateral region seen on the craniocaudal view on ly is indeterminate. An ultrasound is recommended. The oval focal asymmetry in the left breast at 8 o'clock in the retroareolar region is indeterminate. An ultrasound is recommended. There is no abnormality seen in either breast to correspond with the non-bloody discharge from the ni pple, however, ultrasound is recommended. Based on the Tyrer Cuzick model (a risk assessment model) the patients lifetime risk is 11.5% and he r 10 year risk is 2.2%. According to the ACR, ACS, and NCCN guidelines, an annual breast MRI exam gracy ng with mammogram is recommended if the patients lifetime risk is 20% or greater. This exam was interpreted at Station ID: [id number]. NOTE: For mammograms, a report in lay terms will be sent to the patient. Approximately 15% of breast malignancies will not be visualized mammographically. In the management of a palpable breast mass, a negative mammogram must not discourage biopsy of a clinically suspicious lesion. Electronically Signed By: Richie Gomez M.D. lc/:11/17/2022 13:01:29 ACR BI-RADS Category 0: Incomplete 3340F PARENCHYMAL PATTERN: (D) - The breast(s) demonstrate(s) heterogeneously dense fibroglandular parenchy ma. BI-RADS CATEGORY: (0) - 0 Ultrasound [id number] Immediate follow-up LATERALITY: (B)
== END 2022-11-17 10:48 | disposition home or self-care (01) ==
LOC: DI 10:47
PROVIDERS: ATTEND Family Medicine
DX: N63.25 Unspecified lump in the left breast, overlapping quadrants (principal); N64.52 Nipple discharge; R92.333 Mammographic heterogeneous density, bilateral breasts

== ENCOUNTER 2022-12-02 11:15 | Day surgery (SDC) | payer OTHER ==
[~2022-12-02 11:15] MED LIST: ACETAMINOPHEN 500 MG TABLET PO ONE
[2022-12-02] MEDS ORDERED: LACTATED RINGERS 1,000 ML IV ONE ×2 (11:24→12:37)
--- NOTE | 2022-12-02 11:58 | ANESTHESIA ---
Pre-Anesthesia VS, & Labs - Diagnosis screening - Procedure colonoscopy Vital Signs: Temp Pulse Resp BP Pulse Ox O2 Flow Rate 36.6 C 110 H 14 141/85 H 96 12/02/22 11:33 12/02/22 11:33 12/02/22 11:33 12/02/22 11:33 12/02/22 11:33 Height: 5 ft 6 in Weight (kg): 98.1 kg Body Mass Index: 34.9 BMI Classification: Obese - NPO >8 hours - Is Patient ?: No - Lab Results Lab results reviewed: Yes Home Medications and Allergies Home Medications: Ambulatory Orders buPROPion [Wellbutrin Xl] 1 tab PO DAILY 12/01/22 Amlodipine Besylate [Norvasc] 10 mg PO DAILY 02/12/21 Atorvastatin Calcium 40 mg PO DAILY PM 02/12/21 buPROPion [Wellbutrin Xl] 1 tab PO DAILY 12/01/22 Allergies/Adverse Reactions: Allergies Allergy/AdvReac Type Severity Reaction Status Date / Time No Known Drug Allergies Allergy Verified 05/16/22 13:22 Anes History & Medical History - Anesthetic History Anesthesia Complications: reports: No previous complications Family history of Anesthesia Complications: Denies Family history of Malignant Hyperthermia: Denies - Medical History Cardiovascular: reports: Hypertension, High cholesterol Pulmonary: reports: Sleep apnea Gastrointestinal: reports: None Urinary: reports: None Neuro: reports: None Musculoskeletal: reports: None Endocrine/Autoimmune: reports: None Blood Disorders: reports: None Skin: reports: None Smoking Status: Current every day smoker - Surgical History Gynecologic: reports: section Exam General: Alert, Oriented x3, Cooperative Dental: WNL Mouth Openin Fingerbreadth Neck Mobility: Normal Mallampati classification: II Thyromental Distance: 4-6 cm Respiratory: Lungs clear Cardiovascular: Regular rate Plan Anesthesia Type: General, MAC Consent for Procedure(s) Verified and Reviewed: Yes Code Status: Attempt Resuscitation ASA classification: 2-Mild systemic disease Is this case an emergency?: No
[2022-12-02] MEDS ORDERED: PROPOFOL 500 MG/50 ML 500 MG/50 ML VIAL ONE (12:09)
[2022-12-02] MEDS ORDERED: MIDAZOLAM 2 MG/2 ML VIAL ONE (12:16)
[2022-12-02] MEDS ORDERED: GLYCOPYRROLATE 1 MG/5 ML VIAL ONE (12:17)
[2022-12-02 12:49] VITALS: O2SAT 92
[2022-12-02 12:58] VITALS: BP 120/79
--- NOTE | 2022-12-02 13:47 | ANESTHESIA POST OP EVALUATION ---
Anesthesia Post Eval - Post Anesthesia Eval Vitals: Last Vital Signs Temp 36.1 C L 12/02/22 12:37 Pulse 70 12/02/22 12:56 Resp 15 12/02/22 12:56 BP 120/79 12/02/22 12:56 Pulse Ox 92 12/02/22 12:56 O2 Flow Rate CV Function Including HR & BP: Stable Pain Control: Satisfactory Nausea & Vomiting: Negative Mental Status: Baseline Respiratory Status: Airway Patent Hydration Status: Satisfactory Anesthesia Complications: None
== END 2022-12-02 11:16 | disposition home or self-care (01) ==
LOC: SDS 11:15
PROVIDERS: ATTEND Surgery
DX: Z12.11 Encounter for screening for malignant neoplasm of colon (principal); K57.30 Diverticulosis of large intestine without perforation or abscess without bleeding; E66.9 Obesity, unspecified; Z68.34 Body mass index [BMI] 34.0-34.9, adult; F17.200 Nicotine dependence, unspecified, uncomplicated; G47.30 Sleep apnea, unspecified; Z80.0 Family history of malignant neoplasm of digestive organs
CPT/HCPCS: 45378; A9270; J7120; 81025

== ENCOUNTER 2022-12-08 09:47 | Outpatient (CLI) | payer OTHER ==
[2022-12-08] MEDS ORDERED: LIDOCAINE 1%-EPI 1:100000 50 ML VIAL ONE (10:16)
[2022-12-08] MEDS ORDERED: LIDOCAINE-MPF 1% 5 ML VIAL ONE (10:16)
[2022-12-08] MEDS ORDERED: LIDOCAINE-MPF 1% 5 ML VIAL TD ONE (11:58)
[2022-12-08] MEDS ORDERED: LIDOCAINE 1%-EPI 1:100000 50 ML VIAL SUBQ ONE (12:00)
--- NOTE | 2022-12-09 15:53 | Mammography Report ---
UNILATERAL LEFT DIGITAL DIAGNOSTIC MAMMOGRAM POST-PROCEDURE IMAGING FOR MARKER PLACEMENT: 12/08/2022 CLINICAL: Post left breast ultrasound biopsy clip placement imaging. Comparison is made to exams dated: 11/17/2022 mammogram, 05/07/2018 mammogram, and 10/15/2017 mammogram - [facility]. The left breast is heterogeneously dense, which may obscure small masses (category c / 51-75% glandul ar tissue). There is a marker clip in the appropriate position in the left breast anterior depth central to the n ipple seen on the craniocaudal view only. This marker clip placement is at the biopsy site. IMPRESSION: POST PROCEDURE MAMMOGRAM FOR MARKER PLACEMENT There was a successful marker clip placement in the left breast anterior depth central to the nipple seen on the craniocaudal view only. Based on the Tyrer Cuzick model (a risk assessment model) the patients lifetime risk is 12.3% and he r 10 year risk is 2.4%. According to the ACR, ACS, and NCCN guidelines, an annual breast MRI exam gracy ng with mammogram is recommended if the patients lifetime risk is 20% or greater. This exam was interpreted at Station ID: [id number]. NOTE: For mammograms, a report in lay terms will be sent to the patient. Approximately 15% of breast malignancies will not be visualized mammographically. In the management of a palpable breast mass, a negative mammogram must not discourage biopsy of a clinically suspicious lesion. Electronically Signed By: Dina Hagen M.D. [facility]/:12/09/2022 15:46:29 Entry: - 12/09/2022 15:46:29 ACR BI-RADS Category Post-procedure mammogram for marker placement PARENCHYMAL PATTERN: (D) - The breast(s) demonstrate(s) heterogeneously dense fibroglandular parenchy ma. BI-RADS CATEGORY: () - Unspecified - other recall n/a LATERALITY: (B)
--- NOTE | 2022-12-11 17:04 | Ultrasound Report ---
ULTRASOUND GUIDED BIOPSY LEFT BREAST USING VACUUM DEVICE WITH MARKING DEVICE INSERTED: 12/08/2022 CLINICAL: Left breast mass. PATIENT CONSENT: Risks (minor bleeding, infection, vasovagal reaction and repeat procedure), benefits and alternatives were explained to the patient and written informed consent was obtained. Correlation is made to exams dated: 11/17/2022 ultrasound, 11/17/2022 mammogram, and 05/07/2018 mammogr [facility]. An ultrasound guided biopsy using real-time ultrasound was performed for the indistinct irregular sha ped mass located in the left breast at 9 o'clock anterior depth. This was described on the previous mammography and ultrasound reports. The skin was prepped in the usual manner. Local anesthetic was administered to the access site. A skin rommel was made in the breast. The abnormality was approached from the medial aspect. A biopsy needle was placed adjacent to the abnormality under ultrasound chepe dance. Once the needle was documented to be in the correct location, a specimen was obtained using t [facility] Mammotome biopsy system. A titanium clip was inserted into the biopsy cavity. A sterile dressing was applied to the access site. The specimen was sent to the laboratory for pathological analysis. IMPRESSION: ULTRASOUND GUIDED BIOPSY BENIGN Ultrasound guided biopsy of the mass in the left breast at 9 o'clock anterior depth was successful. Pathology revealed benign focal fibrosis, duct ectasia, and usual ductal hyperplasia. Pathology is co ncordant with imaging. Recommend follow up ultrasound in 5 months (May 2023) when patient will be d ue for contralateral right breast mammogram and ultrasound. Future imaging is recommended as follows: 05/19/2023 right mammogram and an ultrasound. This exam was interpreted at Station ID: [id number]. Dina aPtel M.D., PH.D [facility],eb/:12/10/2022 19:11:49 BI-RADS CATEGORY: () - Unspecified - other recall n/a LATERALITY: (B)
== END 2022-12-08 09:48 | disposition home or self-care (01) ==
LOC: DI 09:47
PROVIDERS: ATTEND Family Medicine
DX: N60.12 Diffuse cystic mastopathy of left breast (principal); R92.0 Mammographic microcalcification found on diagnostic imaging of breast; N62 Hypertrophy of breast; R92.332 Mammographic heterogeneous density, left breast; R92.322 Mammographic fibroglandular density, left breast
CPT/HCPCS: 19083; 77065; J3490

== ENCOUNTER 2023-04-16 13:00 | Outpatient (CLI) | payer OTHER ==
--- NOTE | 2023-04-16 20:20 | XRAY Report ---
PROCEDURE: Chest 2V INDICATIONS: COUGH AND URI TECHNIQUE: 2 views of the chest were obtained. COMPARISON: 08/12/2020 FINDINGS: Surgical changes and devices: None. Lungs and pleura: No pleural effusions or pneumothorax. Lungs are clear. Low lung volumes accentuate pulmonary interstitium and heart size. Mediastinum: Mediastinal contours appear normal. Heart size is normal. Bones and chest wall: No suspicious bony lesions. Overlying soft tissues appear unremarkable. IMPRESSION: Normal two-view chest x-ray Reviewed by: Erickson Fernandez MD on 04/16/2023 7:18 PM [facility] Approved by: Erickson Fernandez MD on 04/16/2023 7:18 PM [facility] Station ID: [id number]
== END 2023-04-16 13:15 | disposition home or self-care (01) ==
LOC: DI.N 13:00
PROVIDERS: ATTEND Family Medicine
DX: J06.9 Acute upper respiratory infection, unspecified (principal); R05.8 Other specified cough

== ENCOUNTER 2023-05-20 07:45 | Outpatient (CLI) | payer OTHER ==
--- NOTE | 2023-05-25 09:55 | Ultrasound Report ---
LIMITED ULTRASOUND OF LEFT BREAST: 05/21/2023 CLINICAL: Left breast ultrasound biopsy follow up. Comparison is made to exams dated: 05/20/2023 ultrasound, 12/08/2022 ultrasound biopsy, 05/20/2023 leroy mogram, 12/08/2022 mammogram, 11/17/2022 ultrasound, and 11/17/2022 ultrasound - [facility]. Color flow and real-time ultrasound of the left breast 9 o'clock region were performed on the areas of interest. Iniguez scale images of the real-time examination were reviewed. There is a stable 0.5 cm x 0.6 cm x 0.3 cm mass in the left breast at 9 o'clock anterior depth 1 cm f rom the nipple. This mass is hypoechoic. There is an associated biopsy clip. IMPRESSION: BENIGN There is no sonographic evidence of malignancy. The stable 0.5 cm x 0.6 cm x 0.3 cm mass in the left breast is benign. Return to annual mammogram screening schedule is recommended. This exam was interpreted at Station ID: [id number]. Electronically Signed By: Love ahuja/:05/22/2023 09:09:28 Ultrasound BI-RADS: 2 Benign BI-RADS CATEGORY: (2) - 2 RECOMMENDATION: (ANNUAL) - Recommend routine annual screening mammography. [id number] return to screening LATERALITY: (B)
--- NOTE | 2023-05-25 09:55 | Mammography Report ---
UNILATERAL RIGHT DIGITAL DIAGNOSTIC MAMMOGRAM 3D/2D: 05/20/2023 CLINICAL: Patient returns for a 6 month follow up of the right breast. Comparison is made to exams dated: 11/17/2022 ultrasound, 11/17/2022 mammogram, 05/07/2018 mammogram, a nd 10/15/2017 mammogram - [facility]. The right breast is heterogeneously dense, which may obscure small masses (category c / 51-75% glandu lar tissue). There is a stable focal asymmetry in the right breast at 9 o'clock anterior depth. No other significant masses or calcifications are seen in the breast. IMPRESSION: INCOMPLETE: NEEDS ADDITIONAL IMAGING EVALUATION The stable focal asymmetry in the right breast is indeterminate. A targeted ultrasound of the right breast is recommended and will be performed immediately following this exam. Based on the Tyrer Cuzick model (a risk assessment model) the patient's lifetime risk is 12.3% and he r 10 year risk is 2.5%. According to the ACR, ACS, and NCCN guidelines, an annual breast MRI exam gracy ng with mammogram is recommended if the patient's lifetime risk is 20% or greater. This exam was interpreted at Station ID: [id number]. NOTE: For mammograms, a report in lay terms will be sent to the patient. Approximately 15% of breast malignancies will not be visualized mammographically. In the management of a palpable breast mass, a negative mammogram must not discourage biopsy of a clinically suspicious lesion. Electronically Signed By: Love Burr M.D. lk/:05/20/2023 08:19:12 ACR BI-RADS Category 0: Incomplete 3340F PARENCHYMAL PATTERN: (D) - The breast(s) demonstrate(s) heterogeneously dense fibroglandular parleslie rubi. BI-RADS CATEGORY: (0) - 0 Ultrasound [id number] Immediate follow-up LATERALITY: (B)
--- NOTE | 2023-05-25 09:55 | Ultrasound Report ---
LIMITED ULTRASOUND OF RIGHT BREAST: 05/20/2023 CLINICAL: 6 month follow-up of cysts. Comparison is made to exams dated: 05/20/2023 mammogram, 12/08/2022 ultrasound biopsy, 12/08/2022 leroy mogram, 11/17/2022 ultrasound, 11/17/2022 ultrasound, and 11/17/2022 mammogram - [facility]. Color flow and real-time ultrasound of the right breast 3 o'clock, 9 o'clock, and retroareolar region s were performed on the areas of interest. Iniguez scale images of the real-time examination were revie wed. There is a stable 0.5 cm x 0.4 cm x 0.3 cm complicated cyst in the right breast at 3 o'clock in the r etroareolar region. There also is a stable 0.7 cm x 0.7 cm x 0.3 cm complicated cyst and a stable 0.6 cm complicated cyst in the right breast at 9 o'clock anterior depth 4 cm from the nipple. The larger cyst at 9 o'clock correlates with mammography findings. IMPRESSION: PROBABLY BENIGN The stable complicated cyst in the right breast at 3 o'clock in the retroareolar region is probably b enign. The stable complicated cysts in the right breast at 9 o'clock anterior depth are probably benign. A follow-up ultrasound in 6 months is recommended to demonstrate stability. This exam was interpreted at Station ID: [id number]. Electronically Signed By: Love Burr M.D. lk/:05/20/2023 10:16:04 Ultrasound BI-RADS: 3 Probably benign BI-RADS CATEGORY: (3) - 3 Ultrasound [id number] 6 month follow-up LATERALITY: (B)
== END 2023-05-20 07:46 | disposition home or self-care (01) ==
LOC: DI 07:45
PROVIDERS: ATTEND Family Medicine
DX: N60.11 Diffuse cystic mastopathy of right breast (principal); N63.25 Unspecified lump in the left breast, overlapping quadrants

== ENCOUNTER 2023-07-30 15:15 | Outpatient (CLI) | payer OTHER ==
[2023-07-30 17:54] LABS: BASOPHILS # (AUTO) 0.1 10^3/uL (0.0-0.1); BASOPHILS % (AUTO) 0.5 %; EOSINOPHILS # (AUTO) 0.2 10^3/uL (0.0-0.7); EOSINOPHILS % (AUTO) 1.5 %; HCT - HEMATOCRIT 44.5 % (37.0-47.0); HGB - HEMOGLOBIN 15.3 g/dL (12.0-16.0); LYMPHOCYTES # (AUTO) 3.9 10^3/uL (1.5-3.5); LYMPHOCYTES % (AUTO) 27.4 %; MEAN CORPUSCULAR HEMOGLOBIN 31.4 pg (27.0-31.0); MEAN CORPUSCULAR HGB CONC 34.4 g/dL (32.0-36.0); MEAN CORPUSCULAR VOLUME 91.2 fL (81.0-99.0); MEAN PLATELET VOLUME 10.1 fL (7.9-10.8); MONOCYTES % (AUTO) 6.7 %; NEUTROPHILS % (AUTO) 63.7 %; PLT - PLATELET COUNT 292 10^3/uL (130-450); RED BLOOD COUNT 4.88 10^6/uL (4.20-5.40); RED CELL DISTRIBUTION WIDTH 12.5 % (12.0-15.0); WHITE BLOOD COUNT 14.1 x10^3/uL (4.8-10.8)
[2023-07-30 18:11] LABS: ALBUMIN 4.4 g/dL (3.2-5.5); ALBUMIN/GLOBULIN RATIO 1.5 (1.0-2.2); BILIRUBIN,TOTAL 0.4 mg/dL (0.2-1.0); CALCIUM 9.6 mg/dL (8.5-10.3); CREATININE 0.9 mg/dL (0.6-1.3); POTASSIUM 3.3 mmol/L (3.5-4.5); TOTAL PROTEIN 7.3 g/dL (6.4-8.9)
== END 2023-07-30 15:30 | disposition home or self-care (01) ==
LOC: LAB.N 15:15
PROVIDERS: ATTEND Family Medicine
DX: R10.9 Unspecified abdominal pain (principal)
CPT/HCPCS: 36415; 80053; 83690; 85025